=== PATIENT | male | born 1975 | race American Indian/Alaskan Native ===

== ENCOUNTER 2021-01-01 19:33 | Emergency (ER) | payer SELFPAY ==
[2021-01-01 20:59] VITALS: BP 123/85
[2021-01-01] MEDS ORDERED: ONDANSETRON 4 MG/2 ML INJ IV ONE (22:45)
[2021-01-01] MEDS ORDERED: MORPHINE 4 MG/1 ML INJ IV ONE (22:45)
[2021-01-01] MEDS ORDERED: SODIUM CHLORIDE 0.9% 1000 ML 1,000 ML IV ONE (22:46)
[2021-01-01 22:59] LABS: Bilirubin,Urine NEG (Negative); Blood,Urine NEG (Negative); Color,Urine Yellow (Yellow); Mucus,Urine 1+ /HPF; Protein,Urine <15 mg/dL mg/dL (Negative); Urobilinogen,Urine < 2.0 mg/dL (<2.0)
[2021-01-01 23:21] LABS: Hematocrit 39.9 % (35.5-45.6); Hemoglobin 13.8 gm/dl (11.8-15.2); Mean Corpuscular HGB Conc 35 % (32-34); Mean Corpuscular Volume 84 fl (84-94); Platelet Count 308 K/mm3 (140-440); Red Blood Count 4.75 M/mm3 (3.65-5.03); Red Cell Distribution Width 13.7 % (13.2-15.2)
--- NOTE | 2021-01-01 23:39 | Ultrasound Report ---
Scrotal Ultrasound HISTORY: Testicular pain. TECHNIQUE: Grayscale and color imaging performed. COMPARISON: None FINDINGS: Both testicles are normal in size and appearance with preserved blood flow. There is a tiny epididymal head cyst on the right measuring 3 mm. The right epididymis is otherwise unremarkable. Th e left epididymis is also unremarkable. No hydrocele. IMPRESSION: Tiny epididymal head cyst on the right. Otherwise unremarkable exam. Signer Name: Chris Huber MD Signed: 01/01/2021 11:35 PM Workstation Name: [id number]
[2021-01-01 23:44] LABS: Alanine Aminotransferase 19 units/L (7-56); Albumin 4.6 g/dL (3.9-5); BUN/Creatinine Ratio 16; Blood Urea Nitrogen 14 mg/dL (9-20); Calcium 9.7 mg/dL (8.4-10.2); Hemolysis Index 5
[2021-01-02] LABS: Total Cells Counted 100
[2021-01-02 00:01] LABS: Platelet Estimate Consistent w Auto
--- NOTE | 2021-01-02 01:25 | Cat Scan Report ---
CT ABDOMEN AND PELVIS WITH CONTRAST HISTORY: Patient complains of R.L.Q. / Pelvic and Testicular pain. COMPARISON: None. TECHNIQUE: CT images of the abdomen and pelvis were obtained following administration of intravenous contrast. All CT scans at this location are performed using CT dose reduction for ALARA by means of automated exposure control. CONTRAST: 100 ml of intravenous contrast administered. FINDINGS: Lungs/bones: Lung bases are clear. No acute osseous abnormality identified. Abdomen/pelvis: The liver, gallbladder, spleen, pancreas, adrenals, and proximal GI tract appear unr emarkable. There are tiny simple appearing renal cysts bilaterally. A tiny fat-containing umbilical h ernia is also present. The prostate and urinary bladder unremarkable. There is no pelvic free fluid. No acute colonic abnorm ality is identified. The appendix and terminal ileum appear normal. No hernia. IMPRESSION: 1. No acute abnormality identified. Signer Name: Chris Huber MD Signed: 01/02/2021 1:21 AM Workstation Name: [id number]
[2021-01-02] MEDS ORDERED: KETOROLAC 30 MG/1 ML INJ IV ONE (02:54)
[2021-01-02] MEDS ORDERED: ONDANSETRON 4 MG/2 ML INJ IV ONE (02:54)
[2021-01-02] MEDS ORDERED: MORPHINE 4 MG/1 ML INJ IV ONE (02:55)
--- NOTE | 2021-01-02 05:49 | Emergency Department Report ---
ED Male HPI - General Chief complaint: Urogenital-Male Stated complaint: GROIN PAIN Source: patient Mode of arrival: Ambulatory Limitations: No Limitations - History of Present Illness Initial comments: Patient is a 45-year-old -[place] male with a history of kidney stones who presents to the ED with complaint of acute onset persistent right inguinal pain that radiates to the right testicle and suprapubic area persistent for the last 2 days. Patient states that the pain is constant, worse with any movement and that the pain has gotten worse in the last 24 hours. Patient denies hematuria, traumatic injury to the right testicle or penis, nausea and vomiting, fever, chills, dysuria, urinary frequency and urgency, low back pain, chest pain or shortness of breath, numbness and tingling or weakness of lower extremities bilaterally. MD Complaint: testicle pain (right), groin pain (right), other (suprapubic pain) -: Sudden, days(s) (2) Location: right testicle, right inguinal region, abdomen (suprapubic) Radiation: none Severity: severe Severity scale (0 -10): 7 Quality: aching, sharp Consistency: constant Improves with: none Worsens with: palpation, movement denies other symptoms. denies: discharge, swelling, mass, rash, urinary retention, blood in urine, dysuria, fever, nausea/vomiting, incontinence - Related Data Sexually active: Yes Previous Rx's Medication Instructions Recorded Last Taken Type Baclofen 20 mg PO Q8H PRN #24 tablet 01/02/21 Unknown Rx Ibuprofen [Motrin] 800 mg PO Q8HR PRN #30 tablet 01/02/21 Unknown Rx traMADoL [Ultram] 50 mg PO Q6HR PRN #12 tablet 01/02/21 Unknown Rx Allergies Allergy/AdvReac Type Severity Reaction Status Date / Time No Known Allergies Allergy Unverified 01/01/21 21:09 ED Review of Systems ROS: Stated complaint: GROIN PAIN Other details as noted in HPI Constitutional: denies: chills, fever Eyes: denies: eye pain, eye discharge, vision change ENT: denies: ear pain, throat pain Respiratory: denies: cough, shortness of breath, wheezing Cardiovascular: denies: chest pain, palpitations Endocrine: no symptoms reported Gastrointestinal: abdominal pain (Right-sided pelvic pain). denies: nausea, vomiting, diarrhea Genitourinary: testicular pain (Right testicular pain), other (Right inguinal pain). denies: urgency, dysuria Musculoskeletal: denies: back pain, joint swelling, arthralgia Skin: denies: rash, lesions Neurological: denies: headache, weakness, paresthesias Psychiatric: denies: anxiety, depression Hematological/Lymphatic: denies: easy bleeding, easy bruising ED Past Medical Hx - Past Medical History Previous Medical History?: Yes Hx Kidney Stones: Yes - Surgical History Past Surgical History?: Yes Additional Surgical History: Brain Surgery. Right hand Surgery - Social History Smoking Status: Never Smoker Substance Use Type: Marijuana - Medications Home Medications: Home Medications Medication Instructions Recorded Confirmed Last Taken Type Baclofen 20 mg PO Q8H PRN #24 tablet 01/02/21 Unknown Rx Ibuprofen [Motrin] 800 mg PO Q8HR PRN #30 tablet 01/02/21 Unknown Rx traMADoL [Ultram] 50 mg PO Q6HR PRN #12 tablet 01/02/21 Unknown Rx ED Physical Exam - General Limitations: No Limitations General appearance: alert, in no apparent distress - Head Head exam: Present: atraumatic, normocephalic, normal inspection - Eye Eye exam: Present: normal appearance, PERRL, EOMI Pupils: Present: normal accommodation - ENT ENT exam: Present: normal exam, normal orophraynx, mucous membranes moist, TM's normal bilaterally, normal external ear exam - Neck Neck exam: Present: normal inspection, full ROM - Respiratory Respiratory exam: Present: normal lung sounds bilaterally. Absent: respiratory distress, wheezes, rales, rhonchi, stridor, chest wall tenderness, accessory muscle use, decreased breath sounds, prolonged expiratory - Cardiovascular Cardiovascular Exam: Present: regular rate, normal rhythm, normal heart sounds. Absent: systolic murmur, diastolic murmur, rubs, gallop - GI/Abdominal GI/Abdominal exam: Present: soft, normal bowel sounds. Absent: tenderness, guarding, rebound, hyperactive bowel sounds, hypoactive bowel sounds, organomegaly - exam: Present: testicular tenderness (Palpable mild right testicular and scrotal tenderness), circumcision, other (Palpable right inguinal tenderness). 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 Absent: erythema, swelling, lesions, lacerations, ecchymosis, bleed ing - Extremities Exam Extremities exam: Present: normal inspection, full ROM, normal capillary refill - Back Exam Back exam: Present: normal inspection, full ROM. Absent: tenderness, CVA tenderness (R), CVA tenderness (L), muscle spasm, paraspinal tenderness - Neurological Exam Neurological exam: Present: alert, oriented X3, CN II-XII intact, normal gait, reflexes normal - Psychiatric Psychiatric exam: Present: normal affect, normal mood - Skin Skin exam: Present: warm, dry, intact, normal color. Absent: rash ED Course Vital Signs 01/01/21 20:56 Temperature 97.6 F Pulse Rate 89 Respiratory 18 Rate Blood Pressure 123/85 O2 Sat by Pulse 98 Oximetry ED Medical Decision Making - Lab Data Result diagrams: 01/01/21 22:52 01/01/21 22:52 - Radiology Data Radiology results: report reviewed, [id number] Ultrasound Report Signed Patient: DOTTY TRAORE MR#: [id number] : 1975 Acct:[id number] Age/Sex: 45 / M ADM Date: 01/01/21 Loc: ED Attending Dr: Ordering Physician: GHADA SALDANA Date of Service: 01/01/21 Procedure(s): US testicular doppler comp Accession Number(s): [id number] cc: GHADA SALDANA Scrotal Ultrasound HISTORY: Testicular pain. TECHNIQUE: Grayscale and color imaging performed. COMPARISON: None FINDINGS: Both testicles are normal in size and appearance with preserved blood flow. There is a tiny epididymal head cyst on the right measuring 3 mm. The right epididymis is otherwise unremarkable. The left epididymis is also unremarkable. No hydrocele. IMPRESSION: Tiny epididymal head cyst on the right. Otherwise unremarkable exam. Signer Name: Chris Huber MD Signed: 01/01/2021 11:35 PM Workstation Name: [id number] Transcribed By: ALIDA Dictated By: Chris Huber MD Electronically Authenticated By: Chris Huber MD Signed Date/Time: 01/01/212334 DD/ 33 TD/TT: [facility] [address] [place] [address] Cat Scan Report Signed Patient: DOTTY TRAORE MR#: [id number] : 1975 Acct:[id number] Age/Sex: 45 / M ADM Date: 01/01/21 Loc: ED Attending Dr: Ordering Physician: GHADA SALDANA Date of Service: 01/02/21 Procedure(s): CT abdomen pelvis w con Accession Number(s): [id number] cc: GHADA SALDANA CT ABDOMEN AND PELVIS WITH CONTRAST HISTORY: Patient complains of R.L.Q. / Pelvic and Testicular pain. COMPARISON: None. TECHNIQUE: CT images of the abdomen and pelvis were obtained following administration of intravenous contrast. All CT scans at this location are performed using CT dose reduction for ALARA by means of automated exposure control. CONTRAST: 100 ml of intravenous contrast administered. FINDINGS: Lungs/bones: Lung bases are clear. No acute osseous abnormality identified. Abdomen/pelvis: The liver, gallbladder, spleen, pancreas, adrenals, and proximal GI tract appear unremarkable. There are tiny simple appearing renal cysts bilaterally. A tiny fat-containing umbilical hernia is also present. The prostate and urinary bladder unremarkable. There is no pelvic free fluid. No acute colonic abnormality is identified. The appendix and terminal ileum appear normal. No hernia. IMPRESSION: 1. No acute abnormality identified. Signer Name: Chris Huber MD Signed: 01/02/2021 1:21 AM Workstation Name: [id number] Transcribed By: ALIDA Dictated By: Chris Huber MD Electronically Authenticated By: Chris Huber MD Signed Date/Time: 01/02/21 0121 DD/ 0119 TD/TT: - Medical Decision Making This is a 45-year-old -[place] male with a history of kidney stones who presents to the ED with complaint of acute onset persistent right inguinal pain that radiates to the right testicle and suprapubic area persistent for the last 2 days. Patient states that the pain is constant, worse with any movement and that the pain has gotten worse in the last 24 hours. In the ED, patient is alert and oriented x3 and is not in any distress but appears to be in significant pain. Patient is however hemodynamically stable. Patient was treated for pain in the ED and also given antiemetics. Lab test results were reviewed and are all nonactionable including urinalysis. Testicular ultrasound showed no acute abnormalities. Abdomen pelvis CT scan with contrast also showed no acute abnormalities. Patient the history and physical exam findings as well as imaging studies report, patient symptoms are likely due to right inguinal muscle strain. On reevaluation, patient's pain is well controlled medication. Patient will discharge home on pain medications and advised to follow-up with his primary care physician in 5 to 7 days for reevaluation or return to the ED immediately if symptoms get worse. - Differential Diagnosis Testicular torsion; epididymitis; hernia; kidney stone; UTI; muscle strain Critical care attestation.: If time is entered above; I have spent that time in minutes in the direct care of this critically ill patient, excluding procedure time. ED Disposition Clinical Impression: Pelvic pain in male Strain of right inguinal muscle Qualifiers: Encounter type: initial encounter Qualified Code(s): S39.013A - Strain of muscle, fascia and tendon of pelvis, initial encounter Disposition: DC-01 TO HOME OR SELFCARE Is pt being admited?: No Does the pt Need Aspirin: No Condition: Stable Instructions: Muscle Strain, [id number], Testicular Self-Exam, [id number] Additional Instructions: All lab test results were reviewed and are all nonactionable. Imaging reports including testicular ultrasound are all unremarkable. Therefore your symptoms are likely due to an inguinal muscle strain which can cause similar pain and symptoms. Therefore take medications with food, drink plenty of fluids and follow-up with your primary care physician in 5 to 7 days for reevaluation. Ret urn to the ED immediately if symptoms get worse. Prescriptions: Baclofen 20 mg PO Q8H PRN #24 tablet PRN Reason: Muscle Spasm Ibuprofen [Motrin] 800 mg PO Q8HR PRN #30 tablet PRN Reason: Pain , Severe (7-10) traMADoL [Ultram] 50 mg PO Q6HR PRN #12 tablet PRN Reason: Pain Forms: Work/School Release Form(ED) Time of Disposition: 06:17 Print Language: PORTUGUESE
== END 2021-01-02 06:55 | disposition home or self-care (01) ==
LOC: ED 19:33
DX: S39.013A Strain of muscle, fascia and tendon of pelvis, initial encounter (principal); R10.2 Pelvic and perineal pain; N20.0 Calculus of kidney; F12.10 Cannabis abuse, uncomplicated; Z79.899 Other long term (current) drug therapy; X58.XXXA Exposure to other specified factors, initial encounter; Y93.89 Activity, other specified; Y92.89 Other specified places as the place of occurrence of the external cause; Y99.8 Other external cause status
CPT/HCPCS: 36415; 74177; 80053; 81001; 85007; 85025; 93975; 96374; 96375; 99284; J1885; J2270; J2405; Q9967

== ENCOUNTER 2022-04-24 01:12 | Emergency (ER) | payer SELFPAY ==
[2022-04-24 01:18] VITALS: BP 146/96
== END 2022-04-25 11:11 | disposition left against medical advice (07) ==
LOC: ED 01:12
DX: R06.02 Shortness of breath (principal); Z53.21 Procedure and treatment not carried out due to patient leaving prior to being seen by health care provider